=== PATIENT | female | born 1965 | race African-American/Black ===

== ENCOUNTER 2019-09-03 18:42 | Emergency (ER) | payer BC, OTHER ==
[~2019-09-03] VITALS: Ht 162.6 cm; Wt 113.4 kg
[2019-09-03] MEDS ORDERED: TOPROL XL25 MG PO (18:52)
[2019-09-03] MEDS ORDERED: NORVASC 2.5 MG2.5 M1 PO (18:52)
[2019-09-03] MEDS ORDERED: LOVASTATIN 20 M20 MG PO (18:53)
[2019-09-03] MEDS ORDERED: COZAAR 25 MG TA25 M1 PO (18:53)
[2019-09-03] MEDS ORDERED: VENTOLIN HFA 1818 GM INH (20:08)
[2019-09-03] MEDS ORDERED: TESSALON PERLE100 MG PO (20:08)
[2019-09-03 20:40] VITALS: BP 159/97
== END 2019-09-03 20:35 | disposition home or self-care (01) ==
LOC: ER 18:42
DX: J06.9 Acute upper respiratory infection, unspecified (principal); J98.01 Acute bronchospasm; I10 Essential (primary) hypertension; E78.00 Pure hypercholesterolemia, unspecified; Z90.710 Acquired absence of both cervix and uterus